=== PATIENT | male | born 1980 | race Caucasian/White ===

== ENCOUNTER 2017-08-29 00:40 | Emergency (ER) | payer OTHER ==
[~2017-08-29] VITALS: Ht 180.3 cm; Wt 90.7 kg
[2017-08-29] MEDS ORDERED: HYDROCODONE-AP1 EAC6 PO (00:58)
[2017-08-29] MEDS ORDERED: HYDROCORTISONE30 G9 RECTAL (00:58)
[2017-08-29 01:10] VITALS: BP 144/81
== END 2017-08-29 01:05 | disposition home or self-care (01) ==
LOC: M.ERS 00:40
DX: K64.9 Unspecified hemorrhoids (principal); F17.210 Nicotine dependence, cigarettes, uncomplicated; Z87.442 Personal history of urinary calculi

== ENCOUNTER 2018-01-05 22:23 | Emergency (ER) | payer OTHER ==
[~2018-01-05] VITALS: Ht 180.3 cm; Wt 86.2 kg
[~2018-01-05 22:23] MED LIST: HYDROCODONE-AP1 EAC6 PO; HYDROCORTISONE30 G9 RECTAL
[2018-01-05] MEDS ORDERED: NOHOMEMEDICATIONS (22:34)
[2018-01-05 22:48] LABS: URINE BILIRUBIN NEGATIVE (Negative); URINE BLOOD NEGATIVE (Negative); URINE CLARITY CLEAR; URINE COLOR YELLOW; URINE GLUCOSE-RANDOM NEGATIVE (Negative); URINE KETONES NEGATIVE (Negative); URINE LEUKOCYTES-REFLEX NEGATIVE (Negative); URINE NITRITE-REFLEX NEGATIVE (Negative); URINE PROTEIN NEGATIVE (Negative)
[2018-01-05 23:34] LABS: AMP/METHAMP POSITIVE (Negative); BARBITURATES Negative (Negative); BENZODIAZEPINES Negative (Negative); COCAINE Negative (Negative); METHADONE Negative (Negative); OPIATES Negative (Negative); PCP Negative (Negative); THC POSITIVE (Negative)
[2018-01-06] MEDS ORDERED: TRAMADOL 50 MG50 MG PO (00:41)
[2018-01-06] MEDS ORDERED: FLEXERIL PO (00:41)
[2018-01-06 00:51] VITALS: BP 130/80
== END 2018-01-06 01:02 | disposition home or self-care (01) ==
LOC: M.ERS 22:23
PROVIDERS: Emergency Medicine
DX: M54.5 Low back pain (principal); R10.32 Left lower quadrant pain

== ENCOUNTER 2018-04-28 01:16 | Emergency (ER) | payer OTHER ==
[~2018-04-28] VITALS: Ht 180.3 cm; Wt 86.2 kg
[~2018-04-28 01:16] MED LIST changes: +FLEXERIL PO; +NOHOMEMEDICATIONS; +TRAMADOL 50 MG50 MG PO
[2018-04-28 02:21] LABS: HEMOGLOBIN 15.1 gm/dL (14.0-18.0); MCH 30.7 pg (26.0-34.0); MPV 8.1 fl. (7.2-11.1)
[2018-04-28 02:22] LABS: HEMATOCRIT 44.4 % (42.0-52.0); MCV 90.5 fL (80.0-100.0); NUCLEATED RBCS 0 /100WBC; PLATELET COUNT* 276 thou/uL (150-400); RDW-CV 14.8 % (10.5-14.5); WBC 8.5 thou/uL (4.0-11.0)
[2018-04-28 02:31] LABS: ABSOLUTE BASOPHILS 0.1 thou/uL (0.0-0.2); ABSOLUTE EOSINOPHILS 0.2 thou/uL (0.0-0.7); ABSOLUTE LYMPHOCYTES 2.6 thou/uL (0.8-5.3); ABSOLUTE MONOCYTES 0.5 thou/uL (0.0-1.2); ABSOLUTE NEUTROPHILS 5.3 thou/uL (1.6-8.1); BASOPHILS 0.6 %; MONOCYTES 5.5 %; POLYS 61.9 %
[2018-04-28 02:34] LABS: ANION GAP 6 mmol/L (7-16); BUN 24 mg/dL (7-18); CALCIUM 8.9 mg/dL (8.5-10.1); CHLORIDE 104 mmol/L (98-107); CO2 31 mmol/L (21-32); CREATININE 1.6 mg/dL (0.6-1.3); GLUCOSE 126 mg/dL (70-99); POTASSIUM 4.1 mmol/L (3.5-5.1); SODIUM 141 mmol/L (136-145)
[2018-04-28 02:41] LABS: ALBUMIN 3.5 g/dL (3.4-5.0); ALKALINE PHOSPHATASE 94 U/L (46-116); LIPASE 155 U/L (73-393); SGOT 17 U/L (15-37); SGPT 23 U/L (30-65); TOTAL BILIRUBIN 0.1 mg/dL (<0.1-1.0); TOTAL PROTEIN 6.6 g/dL (6.4-8.2); TROPONIN-I LEVEL <0.06 ng/mL (<0.06)
[2018-04-28 02:48] LABS: PROTIME 10.1 Seconds (9.20-11.50)
[2018-04-28 02:49] LABS: APTT 29.2 Seconds (25.0-31.3)
[2018-04-28 03:26] VITALS: BP 132/68
--- NOTE | 2018-04-28 16:34 | EKG ---
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
== END 2018-04-28 03:26 | disposition home or self-care (01) ==
LOC: M.ERS 01:16
PROVIDERS: Personal Emergency Response Attendant
DX: R07.89 Other chest pain (principal); F17.210 Nicotine dependence, cigarettes, uncomplicated; Z87.442 Personal history of urinary calculi

== ENCOUNTER 2019-10-13 15:22 | Emergency (ER) | payer OTHER ==
[~2019-10-13] VITALS: Ht 180.3 cm; Wt 86.2 kg
[2019-10-13 15:46] LABS: ABSOLUTE EOSINOPHILS 0.2 thou/uL (0.0-0.7); ABSOLUTE LYMPHOCYTES 2.9 thou/uL (0.8-5.3); ABSOLUTE MONOCYTES 0.8 thou/uL (0.0-1.2); BASOPHILS 0.3 %; EOSINOPHILS 2.3 %; HEMATOCRIT 48.5 % (42.0-52.0); HEMOGLOBIN 16.8 gm/dL (14.0-18.0); LYMPHOCYTES 32.8 %; MCH 31.3 pg (26.0-34.0); MCHC 34.5 g/dL (28.0-37.0); MCV 90.7 fL (80.0-100.0); MONOCYTES 8.5 %; MPV 8.3 fl. (7.2-11.1); NUCLEATED RBCS 0 /100WBC; PLATELET COUNT* 287 thou/uL (150-400); POLYS 56.1 %; RBC 5.35 mil/uL (4.50-6.00); RDW-CV 14.1 % (10.5-14.5); WBC 8.9 thou/uL (4.0-11.0)
[2019-10-13 15:51] LABS: CALCIUM 9.1 mg/dL (8.5-10.1); CREATININE 1.2 mg/dL (0.6-1.3); POTASSIUM 3.6 mmol/L (3.5-5.1)
[2019-10-13 15:56] LABS: TOTAL BILIRUBIN 0.6 mg/dL (<0.1-1.0); TOTAL PROTEIN 7.6 g/dL (6.4-8.2)
[2019-10-13 16:16] LABS: URINE BILIRUBIN NEGATIVE (Negative); URINE BLOOD NEGATIVE (Negative); URINE CLARITY CLEAR; URINE COLOR YELLOW; URINE GLUCOSE-RANDOM NEGATIVE (Negative); URINE KETONES NEGATIVE (Negative); URINE LEUKOCYTES-REFLEX NEGATIVE (Negative); URINE NITRITE-REFLEX NEGATIVE (Negative); URINE PROTEIN NEGATIVE (Negative); URINE SPECIFIC GRAVITY 1.025 (1.005-1.030)
[2019-10-13 16:23] LABS: AMP/METHAMP POSITIVE (Negative); BARBITURATES Negative (Negative); BENZODIAZEPINES Negative (Negative); COCAINE Negative (Negative); METHADONE Negative (Negative); OPIATES Negative (Negative); PCP Negative (Negative); THC POSITIVE (Negative)
[2019-10-13 17:25] VITALS: BP 129/82
--- NOTE | 2019-10-14 11:07 | EKG ---
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
== END 2019-10-13 17:26 | disposition home or self-care (01) ==
LOC: M.ERS 15:22
PROVIDERS: Emergency Medicine Emergency Medical Services
DX: F12.90 Cannabis use, unspecified, uncomplicated (principal); R56.9 Unspecified convulsions; Z87.442 Personal history of urinary calculi

== ENCOUNTER 2019-11-18 15:56 | Inpatient (IN) | payer OTHER ==
[~2019-11-18] VITALS: Ht 180.3 cm; Wt 100.7 kg
--- NOTE | ~2019-11-18 | CON ---
[address] [address] CONSULTATION Name: ROSEY SEARS Room: [address] .R.#: [id number] Admission: 11/18/19 Attend Phys: Fatemeh Jim Discharge: Date of : 76 Report #: [id number] THIS REPORT FOR: //name// cc: ARISTIDES Islas family physician/PCP ARISTIDES - No family physician/PCP ~ THIS REPORT FOR: //name// CC: ARISTIDES physician/PCP Valdemar Lema DATE OF SERVICE: 11/19/2019 HISTORY OF PRESENT ILLNESS: This is a 38-year-old male patient who was evaluated by me for seizures. He gives a history that his seizures started in 2017. Although, he said it started spontaneously, but it looks like he was drinking a significant amount of alcohol at that time. He also uses multiple other drugs like marijuana and methamphetamines. When I asked how much methamphetamine he uses, he says more than people know about. He was seen by a neurologist at [facility] for his seizure. Sometime, he thinks it may have been panic attack and other time he thinks it was seizure. When he thinks it is seizure, he states he jerks and he is confused after that. His body is tired after the episode. He thinks his father also has seizure. He thinks seizures are brought on by stress. He used to take Keppra. He indicated that Keppra did not help him. It looks like in the Emergency Room, he was started on Depakote and he is presently on Depakote. REVIEW OF SYSTEMS: A 14-point review of system was carried out and is positive for pretty significant drug abuse. The drug abuse include amphetamines. Rest of the 14-point review of system was noncontributory. PAST MEDICAL HISTORY: Positive for seizure, but I am not sure what kind of seizure it is. The patient is pretty evasive about the history. Rest of the review of system was noncontributory. PAST MEDICAL HISTORY: Positive for seizures, but I am not sure what kind of seizures they are. FAMILY HISTORY: He says his father has seizures. SOCIAL HISTORY: He is still drink alcohol, but is pretty evasive about how much he drinks alcohol, but he is pretty upfront that he takes methamphetamines [place] [address] CONSULTATION Name: SHAINASolangeROSEY Huong Room: [address]#: [id number] Admission: 11/18/19 Attend Phys: Fatemeh Jim Discharge: Date of : 76 Report #: [id number] PHYSICAL EXAMINATION: Indicate he is alert, responsive, able to follow simple and complex command. His speech looks intact. His cranial nerve examination 2-12 looks unremarkable. Neuromuscular examination is checked for strength, sensation, reflexes and tone is unremarkable. I could not look at the fundus. There is no meningeal sign. He is a very well-built individual who does not have any dysmorphic features of eyes, ears and face. His vision and hearing looks adequate. He has no thyroid abnormality. His reflexes appeared to be somewhat diminished. He does not have any cerebellar sign. Cardiac and respiratory examinations appear unremarkable. His blood pressure is 115/64, respirations 18, pulse is 71, and temperature is 98.8. LABORATORY DATA: Indicate a normal white count. His sodium is normal. He did have a CT scan of the head on admission. According to him, his MRI has shown a spot on his brain. IMPRESSION: His seizures may be because of the drugs he takes especially stimulant and alcohol. I strongly advised him to stop taking those drugs. All he said was that he knows that. He is on Depakote and I will leave him on Depakote. 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 His MRI does show some prominence of the ventricles, but it has been stable for a long time. RECOMMENDATIONS: 1. We will repeat MRI. 2. We will get an EEG. 3. Since he is already on Depakote, I will leave him on Depakote. I discussed the anticonvulsants available in this patient and the pros and cons of it and he wants to stay on Depakote. I will check some other labs, which I ordered. Thank you very much for this referral. By: [id number] Flor MD /nt
[2019-11-18 15:57] VITALS: BP 120/77
[2019-11-18 16:13] LABS: ABSOLUTE EOSINOPHILS 0.1 thou/uL (0.0-0.7); ABSOLUTE LYMPHOCYTES 2.3 thou/uL (0.8-5.3); ABSOLUTE MONOCYTES 0.5 thou/uL (0.0-1.2); ABSOLUTE NEUTROPHILS 6.7 thou/uL (1.6-8.1); BASOPHILS 0.2 %; HEMATOCRIT 48.2 % (42.0-52.0); HEMOGLOBIN 16.4 gm/dL (14.0-18.0); LYMPHOCYTES 23.7 %; MCV 91.2 fL (80.0-100.0); MONOCYTES 5.4 %; MPV 7.9 fl. (7.2-11.1); NUCLEATED RBCS 0 /100WBC; PLATELET COUNT* 312 thou/uL (150-400); POLYS 69.7 %; RBC 5.28 mil/uL (4.50-6.00); RDW-CV 13.8 % (10.5-14.5); WBC 9.6 thou/uL (4.0-11.0)
[2019-11-18 16:16] LABS: CALCIUM 8.5 mg/dL (8.5-10.1); CREATININE 1.1 mg/dL (0.6-1.3); POTASSIUM 3.8 mmol/L (3.5-5.1)
[2019-11-18 16:20] LABS: ALBUMIN 3.5 g/dL (3.4-5.0); TOTAL BILIRUBIN 0.8 mg/dL (<0.1-1.0); TOTAL PROTEIN 6.8 g/dL (6.4-8.2)
[2019-11-18 19:56] VITALS: BP 109/59
[2019-11-18 20:15] VITALS: BP 116/78
[2019-11-18 20:23] VITALS: BP 109/59
[2019-11-19] VITALS: BP 124/58
[2019-11-19 04:13] VITALS: BP 115/64
--- NOTE | 2019-11-19 04:53 | NUR ---
REPORT RECIEVED FROM ER. PT ORIENTED TO ROOM, CALL LIGHT SHOWN, FALL AGREEMENT WENT OVER, PT STATED UNDERSTANDING. ADMISSION DOCUMENTED. IV PATENT. SEIZURE PRECAUTIONS IN PLACE. PT REPORTED BACK PAIN AND A HEADACHE, DR NOTIFIED, ORDERS RECIEVED. PT IRRITABLE AT TIMES. WILL CONTINUE WITH PLAN OF CARE.
[2019-11-19 07:30] VITALS: BP 105/66
[2019-11-19 11:51] VITALS: BP 134/76
--- NOTE | 2019-11-19 15:38 | EKG ---
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 : 1980 Requested By: Tomás Crouch Order Number: [id number] MD: Bill Garcia Measurements Intervals [place] Rate: 84 P: 84 MD: 158 QRS: 114 QRSD: 91 T: 47 QT: 353 QTc: 418 Interpretive Statements Sinus rhythm Right axis deviation ST elev, probable normal early repol pattern Compared to ECG 10/13/2019 15:47:13 Right-axis deviation now present ST (T wave) deviation now present Electronically Signed On 11-19-2019 15:38:18 CDT by Bill Garcia [email or web address] <ELECTRONICALLY SIGNED> By: Bill Garcia MD, [facility] 11/19/19 1538 1605 1605 Bill Garcia MD, [facility] /EPI
== END 2019-11-19 12:00 | disposition left against medical advice (07) | DRG 101 ==
LOC: M.ERS 15:56 → M.2W 18:04 → M.TBA-ER 18:04 → M.2W 20:09
PROVIDERS: Emergency Medicine Emergency Medical Services; ADMIT Internal Medicine; ATTEND Internal Medicine
DX: R56.9 Unspecified convulsions (principal); F17.200 Nicotine dependence, unspecified, uncomplicated; F41.9 Anxiety disorder, unspecified; F19.10 Other psychoactive substance abuse, uncomplicated; M54.9 Dorsalgia, unspecified; Z72.89 Other problems related to lifestyle; Z03.818 Encounter for observation for suspected exposure to other biological agents ruled out; Z87.442 Personal history of urinary calculi

== ENCOUNTER 2020-01-23 17:45 | Emergency (ER) | payer OTHER ==
[~2020-01-23] VITALS: Ht 180.3 cm; Wt 90.7 kg
[2020-01-23] MEDS ORDERED: BACTRIM DS TAB1 EACH PO (18:51)
[2020-01-23] MEDS ORDERED: IBUPROFEN 800800 M1 PO (18:51)
[2020-01-23] MEDS ORDERED: KEFLEX500 M1 PO (18:51)
[2020-01-23] MEDS ORDERED: NORCO 5-325 TA1 EAC2 PO (18:51)
[2020-01-23 19:06] VITALS: BP 139/78
== END 2020-01-23 19:07 | disposition home or self-care (01) ==
LOC: M.ERS 17:45
DX: L02.212 Cutaneous abscess of back [any part, except buttock and flank] (principal); F15.90 Other stimulant use, unspecified, uncomplicated; F12.90 Cannabis use, unspecified, uncomplicated; Z87.442 Personal history of urinary calculi

== ENCOUNTER 2020-03-04 19:09 | Emergency (ER) | payer OTHER ==
[~2020-03-04] VITALS: Ht 180.3 cm; Wt 86.2 kg
[~2020-03-04 19:09] MED LIST changes: +BACTRIM DS TAB1 EACH PO; +IBUPROFEN 800800 M1 PO; +KEFLEX500 M1 PO; +NORCO 5-325 TA1 EAC2 PO
[2020-03-04] MEDS ORDERED: AZITHROMYCIN250 MG PO (19:58)
[2020-03-04] MEDS ORDERED: SUPRAX400 M1 PO (19:58)
[2020-03-04 20:00] LABS: URINE BILIRUBIN NEGATIVE (Negative); URINE BLOOD NEGATIVE (Negative); URINE CLARITY CLEAR; URINE COLOR YELLOW; URINE GLUCOSE-RANDOM NEGATIVE (Negative); URINE KETONES TRACE (Negative); URINE LEUKOCYTES-REFLEX NEGATIVE (Negative); URINE NITRITE-REFLEX NEGATIVE (Negative); URINE PROTEIN NEGATIVE (Negative); URINE SPECIFIC GRAVITY 1.025 (1.005-1.030); URINE UROBILINOGEN 0.2 E.U./dl (0.2-1.0)
[2020-03-04 20:03] VITALS: BP 144/76
== END 2020-03-04 20:03 | disposition home or self-care (01) ==
LOC: M.ERS 19:09
PROVIDERS: Physician Assistant
DX: Z20.2 Contact with and (suspected) exposure to infections with a predominantly sexual mode of transmission (principal); F17.210 Nicotine dependence, cigarettes, uncomplicated; Z87.442 Personal history of urinary calculi

== ENCOUNTER 2020-04-02 21:39 | Emergency (ER) | payer OTHER ==
[~2020-04-02] VITALS: Ht 180.3 cm; Wt 86.2 kg
[~2020-04-02 21:39] MED LIST changes: +AZITHROMYCIN250 MG PO; +SUPRAX400 M1 PO
[2020-04-02 23:12] VITALS: BP 128/74
== END 2020-04-02 23:12 | disposition home or self-care (01) ==
LOC: M.ERS 21:39
DX: B34.9 Viral infection, unspecified (principal); Z20.828 Contact with and (suspected) exposure to other viral communicable diseases; F17.210 Nicotine dependence, cigarettes, uncomplicated; Z87.442 Personal history of urinary calculi

== ENCOUNTER → 2020-04-09 | Emergency (ER) | payer OTHER ==
[~2020-04-09] VITALS: Ht 180.3 cm; Wt 86.2 kg
[2020-04-09 23:08] VITALS: BP 121/81
== END ==
LOC: M.ERS 22:43
DX: R56.9 Unspecified convulsions (principal); Z53.21 Procedure and treatment not carried out due to patient leaving prior to being seen by health care provider

== ENCOUNTER 2020-04-10 00:04 | Emergency (ER) | payer OTHER ==
[~2020-04-10] VITALS: Ht 180.3 cm; Wt 86.2 kg
[2020-04-10 02:15] VITALS: BP 130/72
== END 2020-04-10 02:16 | disposition home or self-care (01) ==
LOC: M.ERS 00:04
DX: R56.9 Unspecified convulsions (principal)

== ENCOUNTER 2020-04-16 17:38 | Emergency (ER) | payer OTHER ==
[~2020-04-16] VITALS: Ht 180.3 cm; Wt 86.2 kg
[2020-04-16] MEDS ORDERED: HYDROXYZINE HCL25 M2 PO (17:51)
[2020-04-16 18:37] VITALS: BP 137/66
== END 2020-04-16 18:37 | disposition home or self-care (01) ==
LOC: M.ERS 17:38
DX: B34.9 Viral infection, unspecified (principal); Z20.828 Contact with and (suspected) exposure to other viral communicable diseases; Z79.899 Other long term (current) drug therapy

== ENCOUNTER 2020-04-22 20:38 | Emergency (ER) | payer OTHER ==
[~2020-04-22] VITALS: Ht 180.3 cm; Wt 86.2 kg
[~2020-04-22 20:38] MED LIST changes: +HYDROXYZINE HCL25 M2 PO
[2020-04-22] MEDS ORDERED: NEURONTIN100 MG PO (20:46)
[2020-04-22 21:31] LABS: URINE BILIRUBIN NEGATIVE (Negative); URINE BLOOD NEGATIVE (Negative); URINE CLARITY CLEAR; URINE COLOR YELLOW; URINE GLUCOSE-RANDOM NEGATIVE (Negative); URINE KETONES NEGATIVE (Negative); URINE LEUKOCYTES-REFLEX NEGATIVE (Negative); URINE NITRITE-REFLEX NEGATIVE (Negative); URINE PROTEIN NEGATIVE (Negative); URINE SPECIFIC GRAVITY >= 1.030 (1.005-1.030); URINE UROBILINOGEN 0.2 E.U./dl (0.2-1.0)
[2020-04-22 21:42] LABS: AMP/METHAMP Negative (Negative); BARBITURATES Negative (Negative); BENZODIAZEPINES Negative (Negative); COCAINE Negative (Negative); METHADONE Negative (Negative); OPIATES Negative (Negative); PCP Negative (Negative); THC POSITIVE (Negative)
[2020-04-22 21:46] LABS: ABSOLUTE EOSINOPHILS 0.2 thou/uL (0.0-0.7); ABSOLUTE LYMPHOCYTES 3.4 thou/uL (0.8-5.3); ABSOLUTE MONOCYTES 0.5 thou/uL (0.0-1.2); ABSOLUTE NEUTROPHILS 4.6 thou/uL (1.6-8.1); BASOPHILS 0.5 %; EOSINOPHILS 2.5 %; HEMATOCRIT 45.3 % (42.0-52.0); HEMOGLOBIN 15.4 gm/dL (14.0-18.0); LYMPHOCYTES 38.9 %; MCH 30.4 pg (26.0-34.0); MCHC 33.9 g/dL (28.0-37.0); MCV 89.6 fL (80.0-100.0); MONOCYTES 5.9 %; MPV 7.6 fl. (7.2-11.1); NUCLEATED RBCS 0 /100WBC; PLATELET COUNT* 276 thou/uL (150-400); POLYS 52.2 %; RBC 5.05 mil/uL (4.50-6.00); WBC 8.8 thou/uL (4.0-11.0)
[2020-04-22 21:58] LABS: CALCIUM 8.2 mg/dL (8.5-10.1); POTASSIUM 3.7 mmol/L (3.5-5.1)
[2020-04-22 22:02] LABS: ALBUMIN 3.4 g/dL (3.4-5.0); MAGNESIUM 2.1 mg/dL (1.8-2.4); TOTAL BILIRUBIN 0.2 mg/dL (<0.1-1.0); TOTAL PROTEIN 6.8 g/dL (6.4-8.2)
[2020-04-22 22:17] VITALS: BP 124/74
--- NOTE | 2020-04-23 10:16 | EKG ---
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[place] : 1980 Requested By: Taylor Drake Order Number: [id number] MD: Angelo Pierson Measurements Intervals [place] Rate: 84 P: 79 OR: 168 QRS: 113 QRSD: 97 T: 26 QT: 352 QTc: 417 Interpretive Statements Sinus rhythm Probable right ventricular hypertrophy Compared to ECG 11/18/2019 16:05:14 no change Electronically Signed On 04-23-2020 10:15:59 [employer]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
== END 2020-04-22 22:17 | disposition home or self-care (01) ==
LOC: M.ERS 20:38
PROVIDERS: Nurse Practitioner Family
DX: R56.9 Unspecified convulsions (principal); F15.90 Other stimulant use, unspecified, uncomplicated; F12.90 Cannabis use, unspecified, uncomplicated; Z79.899 Other long term (current) drug therapy; Z87.442 Personal history of urinary calculi

== ENCOUNTER 2020-11-24 15:59 | Emergency (ER) | payer OTHER ==
[~2020-11-24] VITALS: Ht 180.3 cm; Wt 90.7 kg
[~2020-11-24 15:59] MED LIST changes: +NEURONTIN100 MG PO
== END 2020-11-24 18:23 | disposition left against medical advice (07) ==
LOC: M.ERS 15:59
DX: Z53.21 Procedure and treatment not carried out due to patient leaving prior to being seen by health care provider (principal)

== ENCOUNTER 2021-02-11 22:09 | Emergency (ER) | payer OTHER ==
[~2021-02-11] VITALS: Ht 180.3 cm; Wt 90.7 kg
[2021-02-11] MEDS ORDERED: NEURONTIN100 MG PO (22:22)
[2021-02-11 22:32] LABS: URINE BILIRUBIN NEGATIVE (Negative); URINE BLOOD NEGATIVE (Negative); URINE CLARITY CLEAR; URINE COLOR YELLOW; URINE GLUCOSE-RANDOM NEGATIVE (Negative); URINE KETONES TRACE (Negative); URINE LEUKOCYTES-REFLEX NEGATIVE (Negative); URINE NITRITE-REFLEX NEGATIVE (Negative); URINE PROTEIN NEGATIVE (Negative); URINE SPECIFIC GRAVITY >= 1.030 (1.005-1.030)
[2021-02-11 22:41] LABS: AMP/METHAMP POSITIVE (Negative); BARBITURATES Negative (Negative); BENZODIAZEPINES Negative (Negative); COCAINE Negative (Negative); METHADONE Negative (Negative); OPIATES Negative (Negative); PCP Negative (Negative); THC POSITIVE (Negative)
[2021-02-11 22:43] LABS: HEMATOCRIT 47.2 % (42.0-52.0); HEMOGLOBIN 16.2 gm/dL (14.0-18.0); MCH 30.4 pg (26.0-34.0); MCHC 34.3 g/dL (28.0-37.0); MCV 88.4 fL (80.0-100.0); MPV 7.7 fl. (7.2-11.1); RBC 5.34 mil/uL (4.50-6.00); RDW-CV 14.1 % (10.5-14.5); WBC 11.4 thou/uL (4.0-11.0)
[2021-02-11 22:50] LABS: CALCIUM 10.3 mg/dL (8.5-10.1); CREATININE 1.2 mg/dL (0.6-1.3); POTASSIUM 3.8 mmol/L (3.5-5.1)
[2021-02-11 22:54] LABS: ALBUMIN 4.3 g/dL (3.4-5.0); TOTAL BILIRUBIN 0.4 mg/dL (<0.1-1.0); TOTAL PROTEIN 7.8 g/dL (6.4-8.2)
[2021-02-11 23:42] VITALS: BP 155/87
== END 2021-02-11 23:42 | disposition home or self-care (01) ==
LOC: M.ERS 22:09
PROVIDERS: Personal Emergency Response Attendant
DX: R10.32 Left lower quadrant pain (principal); Z20.822 Contact with and (suspected) exposure to COVID-19; F17.210 Nicotine dependence, cigarettes, uncomplicated; Z87.442 Personal history of urinary calculi; Z79.899 Other long term (current) drug therapy

== ENCOUNTER 2021-04-19 22:15 | Emergency (ER) | payer OTHER ==
[~2021-04-19] VITALS: Ht 180.3 cm; Wt 90.7 kg
[2021-04-19 23:28] VITALS: BP 127/76
== END 2021-04-19 23:28 | disposition home or self-care (01) ==
LOC: M.ERS 22:15
DX: R56.9 Unspecified convulsions (principal)